=== PATIENT | male | born 1970 | race Hispanic/Latino ===

== ENCOUNTER 2018-07-11 18:31 | Observation (INO) | payer OTHER, SELFPAY ==
[2018-07-11 19:36] LABS: Urine Blood NEGATIVE (NEG); Urine Glucose NEGATIVE (NEG); Urine Protein 1+ (NEG); Urine Specific Gravity 1.025 (1.005-1.030); Urine pH 6.5 (5.0-7.0)
[2018-07-11] MEDS ORDERED: FAMOTIDINE 20 MG/2 ML VIAL IV ONE (19:54)
[2018-07-11] MEDS ORDERED: KETOROLAC 30 MG/ML INJ ONE (19:54)
[2018-07-11] MEDS ORDERED: ONDANSETRON 4 MG/2 ML VIAL ONE (19:54)
[2018-07-11] MEDS ORDERED: NA CHLORIDE 0.9% 1,000 ML ONE (19:54)
[2018-07-11 20:06] LABS: Absolute Lymphocytes (CBC) 1.6 K/uL (0.7-4.9); Absolute Neutrophil 9.2 K/uL (1.8-8.0); Basophils % 0.4 % (0-1.3); Eosinophils % 2.3 % (0-4.4); Hematocrit 43.6 % (39.6-49.0); Lymphocytes % 13.3 % (15.3-44.8); MCH 30.8 pg (27.0-35.0); MCV 91.1 fL (80-100); MPV 8.6 fL (7.6-11.3); Monocytes % 8.5 % (3.3-12.3); RBC Red Blood Cell Count 4.79 M/uL (4.33-5.43)
[2018-07-11 20:16] LABS: Albumin 4.1 g/dL (3.4-5.0); Bilirubin Direct 0.1 mg/dL (0-0.2); Bilirubin Total 0.5 mg/dL (0.2-1.0); Potassium 3.7 mmol/L (3.5-5.1); Protein, Total 8.2 g/dL (6.4-8.2)
[2018-07-11 20:17] LABS: Urine Amorphous Sediment 1+ /HPF (NONE SEEN); Urine Bacteria <20 /HPF (NONE SEEN); Urine Culture Reflex Order NOT NEEDED; Urine RBC <5 /HPF (NONE SEEN)
--- NOTE | 2018-07-11 20:55 | RAD REPORT ---
EXAM DESCRIPTION: CTAbdomen Pelvis W Contrast - 07/11/2018 8:45 pm CLINICAL HISTORY: Abdominal pain. ABD PAIN COMPARISON: No comparisons TECHNIQUE: Biphasic CT imaging of the abdomen and pelvis was performed with 100 ml non-ionic IV cont rast. All CT scans are performed using dose optimization technique as appropriate and may include automated exposure control or mA/KV adjustment according to patient size. FINDINGS: The lung bases are clear. Mild diffuse fatty liver is noted. The spleen, adrenal glands and kidneys are within normal limits. M ild inflammatory changes and edema suspected involving the pancreatic head and uncinate process. Ros ral adjacent lymph nodes are present. The finding suggests mild/early acute pancreatitis. No bowel obstruction, free air, free fluid or abscess. The appendix is not identified as a discrete structure, however, no secondary findings of appendicitis are identified. Postsurgical changes are p resent related to hernia repair. No suspicious bony findings. IMPRESSION: Mild/early acute pancreatitis is suspected. Correlation with amylase and lipase levels w ould be of value. Fatty liver.
--- NOTE | 2018-07-11 21:38 | EDPHYS ---
Physician Documentation [facility] Name: Jhon Alba Age: 47 yrs Sex: Male : 1970 Arrival Date: 07/11/2018 Time: 18:33 Bed 25 Private MD: Out, [facility] ED Physician Stephan Mcgrath HPI: 07/11 19:33 This 47 yrs old Male presents to ER via Ambulatory with complaints of wa Abdominal Pain. 19:33 The patient presents with abdominal pain that is diffuse. Onset: The symptoms/episode wa began/occurred 1 day(s) ago, began at 1 AM last night. constant. The symptoms do not radiate. Associated signs and symptoms: none. The symptoms are described as achy, steady. Modifying factors: The symptoms are alleviated by nothing, the symptoms are aggravated by nothing. Severity of pain: At its worst the pain was moderate in the emergency department the pain is unchanged. The patient has not experienced similar symptoms in the past. The patient has not recently seen a physician. states feels like ulcers. Had ulcers many years ago. Historical: - Allergies: 19:21 PENICILLINS; bb - Home Meds: 19:21 Unable to obtain [Active]; bb - PMHx: 19:21 Hypertension; gastric ulcers; bb - PSHx: 19:21 Hernia repair; shoulder surgery; bb - Immunization history:: Adult Immunizations up to date. - Social history:: Smoking status: Patient/guardian denies using tobacco, but has a distant history of tobacco abuse, Patient uses alcohol, on a daily basis. Patient/guardian denies using street drugs. - Ebola Screening: : No symptoms or risks identified at this time. - Family history:: not pertinent. - Hospitalizations: : No recent hospitalization is reported. ROS: 19:34 Constitutional: Negative for fever, chills, and weight loss, Eyes: Negative for injury, wa pain, redness, and discharge, ENT: Negative for injury, pain, and discharge, Neck: Negative for injury, pain, and swelling, Cardiovascular: Negative for chest pain, palpitations, and edema, Respiratory: Negative for shortness of breath, cough, wheezing, and pleuritic chest pain, Back: Negative for injury and pain, : Negative for injury, bleeding, discharge, and swelling, MS/Extremity: Negative for injury and deformity, Skin: Negative for injury, rash, and discoloration, Neuro: Negative for headache, weakness, numbness, tingling, and seizure, Psych: Negative for depression, anxiety, suicide ideation, homicidal ideation, and hallucinations. 19:34 Abdomen/GI: Positive for abdominal pain, Negative for nausea, vomiting, diarrhea. 19:35 All other systems are negative. wa Exam: 19:35 Constitutional: This is a well developed, well nourished patient who is awake, alert, wa and in no acute distress. Head/Face: Normocephalic, atraumatic. Eyes: Pupils equal round and reactive to light, extra-ocular motions intact. Lids and lashes normal. Conjunctiva and sclera are non-icteric and not injected. Cornea within normal limits. Periorbital areas with no swelling, redness, or edema. ENT: Nares patent. No nasal discharge, no septal abnormalities noted. Tympanic membranes are normal and external auditory canals are clear. Oropharynx with no redness, swelling, or masses, exudates, or evidence of obstruction, uvula midline. Mucous membranes moist. Neck: Trachea midline, no thyromegaly or masses palpated, and no cervical lymphadenopathy. Supple, full range of motion without nuchal rigidity, or vertebral point tenderness. No Meningismus. Chest/axilla: Normal chest wall appearance and motion. Nontender with no deformity. No lesions are appreciated. Cardiovascular: Regular rate and rhythm with a normal S1 and S2. No gallops, murmurs, or rubs. Normal PMI, no JVD. No pulse deficits. Respiratory: Lungs have equal breath sounds bilaterally, clear to auscultation and percussion. No rales, rhonchi or wheezes noted. No increased work of breathing, no retractions or nasal flaring. Back: No spinal tenderness. No costovertebral tenderness. Full range of motion. Skin: Warm, dry with normal turgor. Normal color with no rashes, no lesions, and no evidence of cellulitis. MS/ Extremity: Pulses equal, no cyanosis. Neurovascular intact. Full, normal range of motion. Neuro: Awake and alert, GCS 15, oriented to person, place, time, and situation. Cranial nerves II-XII grossly intact. Motor strength 5/5 in all extremities. Sensory grossly intact. Cerebellar exam normal. Normal gait. Psych: Awake, alert, with orientation to person, place and time. Behavior, mood, and affect are within normal limits. 19:35 Abdomen/GI: Inspection: abdomen appears normal, Bowel sounds: normal, in all quadrants, Palpation: soft, in all quadrants, moderate abdominal tenderness, in the epigastric area, umbilical area and right upper quadrant. Vital Signs: 19:21 BP 149 / 107; Pulse 112; Resp 16 S; Temp 98.6(O); Pulse Ox 96% on R/A; Weight 102.06 kg bb (R); Height 5 ft. 10 in. (177.80 cm) (R); Pain 8/10; 20:12 BP 159 / 104; Pulse 103; Resp 19; Pulse Ox 95% on R/A; kr2 20:15 BP 161 / 95 RA (auto/lg); Pulse 103; Resp 19; Pulse Ox 97% on R/A; jp3 21:00 BP 145 / 105; Pulse 99; Resp 12; Pulse Ox 97% on R/A; kr2 22:00 BP 142 / 98; Pulse 95; Resp 14; Pulse Ox 99% on R/A; kr2 23:00 BP 147 / 90; Pulse 92; Resp 14; Pulse Ox 98% on R/A; kr2 07/12 00:00 BP 152 / 90; Pulse 90; Resp 17; Pulse Ox 99% on R/A; kr2 07/11 19:21 Body Mass Index 32.28 (102.06 kg, 177.80 cm) MDM: 07/11 19:04 Patient medically screened. nh 19:36 Differential diagnosis: cholecystitis, Cholelithiasis, gastritis, gastroesophageal wa reflux disease, non-specific abd pain, pancreatitis, drinks ETOH daily. r/o gastritis. check gallbladder. reassess. 21:33 Data reviewed: vital signs, nurses notes, lab test result(s), EKG, radiologic studies. nh Test interpretation: by ED physician or midlevel provider: CT abd/pelvis: mild acute pancreatitis. fatty liver. labs noted for leukocytosis. Response to treatment: the patient's symptoms have markedly improved after treatment, pain resolved with ED interventions. will admit. GI consultation. advised to quit ETOH. Physician consultation: Lisa Bob MD. Admission orders: after a detailed discussion of the patient's condition and case, the admit orders are written by me. 07/11 19:19 Order name: Urine Dipstick--Ancillary (enter results); Complete Time: 20:29 [facility] 07/11 19:31 Order name: Basic Metabolic Panel; Complete Time: 20:29 nh 07/11 19:31 Order name: CBC with Diff; Complete Time: 20:29 nh 07/11 19:31 Order name: Hepatic Function; Complete Time: 20:29 nh 07/11 19:31 Order name: Lipase; Complete Time: 20: nh 07/11 19:31 Order name: Urine Microscopic Only; Complete Time: 20: nh 07/11 19:31 Order name: IV Saline Lock; Complete Time: 19:47 nh 07/11 19:31 Order name: Labs collected and sent; Complete Time: 19:47 nh 07/11 19:31 Order name: Urine Dipstick-Ancillary (obtain specimen); Complete Time: 19: nh 07/11 19:31 Order name: CT Abd/Pelvis - W/Contrast; Complete Time: 21:03 nh Administered Medications: 19:56 Drug: Zofran 4 mg Route: IVP; Site: right antecubital; kr2 20:15 Follow up: Response: No adverse reaction kr2 19:56 Drug: Pepcid 20 mg Route: IVP; Site: left antecubital; kr2 20:15 Follow up: Response: No adverse reaction; Pain is decreased kr2 19:56 Drug: TORadol 30 mg Route: IVP; Site: left antecubital; kr2 20:15 Follow up: Response: No adverse reaction; Pain is decreased kr2 19:57 Drug: NS 0.9% 1000 ml Route: IV; Rate: 1000 ml; Site: right antecubital; kr2 21:05 Follow up: Response: No adverse reaction; IV Status: Completed infusion kr2 Disposition: 07/11/18 21:38 Hospitalization ordered by Lisa Bob for Observation. Preliminary diagnosis are Acute Abdominal Pain, Acute Pancreatittis. - Bed requested for Telemetry/MedSurg (observation). - Status is Observation. kr2 - Condition is Stable. - Problem is new. - Symptoms have improved. UTI on Admission? No Signatures: Dispatcher [employer] EDRosa Maria Johnson RN RN bb Stephan Mcgrath MD MD wa Reaves, Karey, RN RN kr2 Corrections: (The following items were deleted from the chart) 22:02 21:38 Hospitalization Ordered by Lisa Bob MD for Observation. Preliminary bb diagnosis is Acute Abdominal Pain; Acute Pancreatittis. Bed requested for Telemetry/MedSurg (observation). Status is Observation. Condition is Stable. Problem is new. Symptoms have improved. UTI on Admission? No. nh 07/12 00:47 07/11 22:02 07/11/2018 21:38 Hospitalization Ordered by Lisa Bob MD for kr2 Observation. Preliminary diagnosis is Acute Abdominal Pain; Acute Pancreatittis. Bed requested for Telemetry/MedSurg (observation). Status is Observation. Condition is Stable. Problem is new. Symptoms have improved. UTI on Admission? No. bb
--- NOTE | 2018-07-11 21:38 | ER ---
Nurse's Notes [facility] Name: Jhon Alba Age: 47 yrs Sex: Male : 1970 Arrival Date: 07/11/2018 Time: 18:33 Bed 25 Private MD: Out, [facility] Diagnosis: Acute Abdominal Pain;Acute Pancreatittis Presentation: 07/11 19:19 Presenting complaint: Patient states: he has been having abdominal pain since approx bb 0100 this morning denies nausea, vomiting, diarrhea, pain is constant but intermittent in intensity. Transition of care: patient was not received from another setting of care. Onset of symptoms was July 11, 2018. Risk Assessment: Do you want to hurt yourself or someone else? Patient reports no desire to harm self or others. Initial Sepsis Screen: Does the patient meet any 2 criteria? No. Patient's initial sepsis screen is negative. Does the patient have a suspected source of infection? No. Patient's initial sepsis screen is negative. Care prior to arrival: None. 19:19 Method Of Arrival: Ambulatory bb 19:19 Acuity: CRAIG 3 bb Historical: - Allergies: 19:21 PENICILLINS; bb - Home Meds: 19:21 Unable to obtain [Active]; bb - PMHx: 19:21 Hypertension; gastric ulcers; bb - PSHx: 19:21 Hernia repair; shoulder surgery; bb - Immunization history:: Adult Immunizations up to date. - Social history:: Smoking status: Patient/guardian denies using tobacco, but has a distant history of tobacco abuse, Patient uses alcohol, on a daily basis. Patient/guardian denies using street drugs. - Ebola Screening: : No symptoms or risks identified at this time. - Family history:: not pertinent. - Hospitalizations: : No recent hospitalization is reported. Screenin:00 Abuse screen: Denies threats or abuse. Denies injuries from another. Nutritional kr2 screening: No deficits noted. Tuberculosis screening: No symptoms or risk factors identified. Fall Risk None identified. Assessment: 19:57 General: Appears in no apparent distress. uncomfortable, well groomed, well developed, kr2 well nourished, Behavior is calm, cooperative, appropriate for age. Pain: Complains of pain in epigastric area Pain radiates to right upper quadrant and left upper quadrant Pain currently is 7 out of 10 on a pain scale. Quality of pain is described as squeezing, gnawing, Pain began at 0100 this morning Is continuous, Alleviated by rest. Neuro: Level of Consciousness is awake, alert, obeys commands, Oriented to person, place, time, situation, Appropriate for age. Cardiovascular: Capillary refill < 3 seconds in bilateral fingers Patient's skin is warm and dry. Respiratory: Airway is patent Respiratory effort is even, unlabored, Respiratory pattern is regular, symmetrical. GI: Abdomen is flat, non-distended, Bowel sounds present X 4 quads. Abd is soft X 4 quads Abdomen is tender to palpation in epigastric area Patient currently denies diarrhea, nausea, vomiting. EENT: Oral mucosa is moist. Derm: Skin is intact, is healthy with good turgor, Skin is pink, warm \T\ dry. Musculoskeletal: Circulation, motion, and sensation intact. 21:00 Reassessment: Patient appears in no apparent distress at this time. Patient and/or kr2 family updated on plan of care and expected duration. Pain level reassessed. Patient is alert, oriented x 3, equal unlabored respirations, skin warm/dry/pink. Patient states feeling better. Patient states symptoms have improved. 22:00 Reassessment: Patient appears in no apparent distress at this time. Patient and/or kr2 family updated on plan of care and expected duration. Pain level reassessed. Patient is alert, oriented x 3, equal unlabored respirations, skin warm/dry/pink. Patient denies pain at this time. 23:00 Reassessment: Patient appears in no apparent distress at this time. Patient and/or kr2 family updated on plan of care and expected duration. Pain level reassessed. Patient is alert, oriented x 3, equal unlabored respirations, skin warm/dry/pink. Patient states feeling better. 07/12 00:00 Reassessment: Patient appears in no apparent distress at this time. Patient and/or kr2 family updated on plan of care and expected duration. Pain level reassessed. Patient is alert, oriented x 3, equal unlabored respirations, skin warm/dry/pink. Patient denies pain at this time. 00:47 Reassessment: When transferring patient to room 230 patient stated he was starting to kr2 feel pain again. Receiving nurseVioleta at bedside and notified. Patient in no distress. Vital Signs: 07/11 19:21 BP 149 / 107; Pulse 112; Resp 16 S; Temp 98.6(O); Pulse Ox 96% on R/A; Weight 102.06 kg bb (R); Height 5 ft. 10 in. (177.80 cm) (R); Pain 8/10; 20:12 BP 159 / 104; Pulse 103; Resp 19; Pulse Ox 95% on R/A; kr2 20:15 BP 161 / 95 RA (auto/lg); Pulse 103; Resp 19; Pulse Ox 97% on R/A; jp3 21:00 BP 145 / 105; Pulse 99; Resp 12; Pulse Ox 97% on R/A; kr2 22:00 BP 142 / 98; Pulse 95; Resp 14; Pulse Ox 99% on R/A; kr2 23:00 BP 147 / 90; Pulse 92; Resp 14; Pulse Ox 98% on R/A; kr2 07/12 00:00 BP 152 / 90; Pulse 90; Resp 17; Pulse Ox 99% on R/A; kr2 07/11 19:21 Body Mass Index 32.28 (102.06 kg, 177.80 cm) ED Course: 07/11 18:33 Patient arrived in ED. sb2 18:34 Out, [facility] is Private Physician. sb2 19:04 Stephan Mcgrath MD is Attending Physician. wa 19:19 Urine collected: clean catch specimen, clear, antonio colored, Amount Voided: 70mL. jp3 19:19 Placed in gown. Bed in low position. Call light in reach. Side rails up X 1. Warm 3 blanket given. Pulse ox on. NIBP on. 19:20 Urine Dipstick--Ancillary (enter results) Sent. jp3 19:21 Triage completed. bb 19:21 Arm band placed on Patient placed in an exam room, on a stretcher, on pulse oximetry. bb 19:31 Urine Dipstick--Ancillary (enter results) Sent. jp3 19:34 Radiology exam delayed due to lab results not completed at this time. (BUN/Creatinine). 2 19:40 Initial lab(s) drawn, by nj, sent to lab. Inserted saline lock: 20 gauge in left 3 antecubital area, using aseptic technique. Blood collected. 19:46 Chloe Rolle, RN is Primary Nurse. kr2 19:48 Basic Metabolic Panel Sent. jp3 19:48 CBC with Diff Sent. jp3 19:48 Hepatic Function Sent. jp3 19:48 Lipase Sent. jp3 19:48 Urine Microscopic Only Sent. jp3 19:56 Radiology exam delayed due to lab results not completed at this time. (BUN/Creatinine). 20:03 color television console monitor on. kr2 20:[address] via wheelchair. nj 20:44 CT completed. Patient tolerated procedure well. Patient moved back from CT. nj 20:44 CT Abd/Pelvis - W/Contrast In Process Unspecified. EDMS 20:55 Warm blanket given. jp3 20:56 Door closed. jp3 21:37 Lisa Bob MD is Hospitalizing Provider. ga 07/12 00:39 No provider procedures requiring assistance completed. Patient admitted, IV remains in kr2 place. Administered Medications: 07/11 19:56 Drug: Zofran 4 mg Route: IVP; Site: right antecubital; kr2 20:15 Follow up: Response: No adverse reaction kr2 19:56 Drug: Pepcid 20 mg Route: IVP; Site: left antecubital; kr2 20:15 Follow up: Response: No adverse reaction; Pain is decreased kr2 19:56 Drug: TORadol 30 mg Route: IVP; Site: left antecubital; kr2 20:15 Follow up: Response: No adverse reaction; Pain is decreased kr2 19:57 Drug: NS 0.9% 1000 ml Route: IV; Rate: 1000 ml; Site: right antecubital; kr2 21:05 Follow up: Response: No adverse reaction; IV Status: Completed infusion kr2 Outcome: 21:38 Decision to Hospitalize by Provider. ga 07/12 00:40 Admitted to Med/surg accompanied by nurse, via wheelchair, room 230, with chart, Report kr2 called to Violeta Christianson RN Condition: stable Instructed on the need for admit, Demonstrated understanding of instructions. 00:47 Patient left the ED. kr2 Signatures: Dispatcher [employer] EDMS Elizabeth Hernandez Brenda, RN RN Guzman Trent Victoria 2 Stephan Mcgrath MD MD wa Reaves, Karey, TORRI RN kr2 Meghana Bright2 Jerald Ball jp3
[2018-07-11] MEDS ORDERED: ACETAMINOPHEN 500 MG TAB PO PRN (23:00)
[2018-07-11] MEDS ORDERED: ONDANSETRON 4 MG/2 ML VIAL IV PRN (23:00)
[2018-07-11] MEDS ORDERED: ALPRAZOLAM 0.25 MG TABLET PO PRN (23:00)
[2018-07-12] MEDS: NA CHLORIDE 0.9% 1,000 ML IV SCH ×3 (00:52→13:21)
[2018-07-12] MEDS: MORPHINE 4 MG/ML SYR IV PRN ×2 (00:54→09:27)
[2018-07-12 05:46] LABS: ALT/SGPT 26 U/L (12-78); AST/SGOT 13 U/L (15-37); Albumin 3.3 g/dL (3.4-5.0); Alkaline Phosphatase 49 U/L (45-117); BUN Blood Urea Nitrogen 14 mg/dL (7-18); Bicarbonate 30 mmol/L (21-32); Bilirubin Total 0.6 mg/dL (0.2-1.0); Glucose Level 91 mg/dL (74-106); Lipase 282 U/L (73-393); Phosphorus 4.5 mg/dL (2.5-4.9); Potassium 4.1 mmol/L (3.5-5.1); Protein, Total 6.7 g/dL (6.4-8.2); Sodium Level 139 mmol/L (136-145)
[2018-07-12 05:47] LABS: Absolute Lymphocytes (CBC) 1.9 K/uL (0.7-4.9); Basophils % 0.7 % (0-1.3); Eosinophils % 4.5 % (0-4.4); Hematocrit 38.8 % (39.6-49.0); Lymphocytes % 23.1 % (15.3-44.8); MCH 31.6 pg (27.0-35.0); MCV 91.1 fL (80-100); MPV 8.6 fL (7.6-11.3); Monocytes % 12.5 % (3.3-12.3); RBC Red Blood Cell Count 4.25 M/uL (4.33-5.43)
--- NOTE | 2018-07-12 08:39 | P.HP ---
Certification for Inpatient Patient admitted to: Observation With expected LOS: <2 Midnights Patient will require the following post-hospital care: None Practitioner: I am a practitioner with admitting privileges, knowledge of patient current condition, hospital course, and medical plan of care. Services: Services provided to patient in accordance with Admission requirements found in Title 42 Section 412.3 of the Code of Federal Regulations Patient History Date of Service: 07/11/18 Reason for admission: Acute pancreatitis History of Present Illness: Patient is a 47-year-old gentleman who came to the hospital with abdominal discomfort. Pain was mainly in the epigastric region. Patient is a heavy drinker and drinks 4-6 beers a day. Patient's pain radiated to his back. He came to the hospital for evaluation. In the ER his CT scan revealed acute pancreatitis. Patient was admitted to the hospital for further evaluation. Allergies Penicillins Allergy (Verified 07/11/18 22:38) Hives Home Medications: NK [No Home Meds] 07/12/18 - Past Medical/Surgical History Has patient received pneumonia vaccine in the past: No Diabetic: No -: HTN -: Gastric Ulcer -: Hernia repair -: Shoulder sx - Family History Father Medical History: Hypertension Mother History Unknown: Yes - Social History Smoking Status: Former smoker Alcohol use: Yes CD- Drugs: No Caffeine use: Yes Place of Residence: Home Review of Systems 10-point ROS is otherwise unremarkable Physical Examination - Vital Signs Temperature: 96.8 F Blood Pressure: 141/94 Pulse: 98 Respirations: 18 Pulse Ox (%): 97 - Physical Exam General: Alert, In no apparent distress, Oriented x3 HEENT: Atraumatic, PERRLA, Mucous membr. moist/pink, EOMI, Sclerae nonicteric Neck: Supple, 2+ carotid pulse no bruit, No LAD, Without JVD or thyroid abnormality Respiratory: Clear to auscultation bilaterally, Normal air movement Cardiovascular: Regular rate/rhythm, Normal S1 S2, No murmurs Gastrointestinal: Normal bowel sounds, Soft and benign, Non-distended, No rebound, No guarding, Tenderness Musculoskeletal: No clubbing, No swelling, No tenderness Integumentary: No rashes Neurological: Normal gait, Normal speech, Normal strength at 5/5 x4 extr, Normal tone, Normal affect Lymphatics: No axilla or inguinal lymphadenopathy - Studies Laboratory Data (last 24 hrs) 07/11/18 19:40: WBC 12.1 H, Hgb 14.8, Hct 43.6, Plt Count 249 07/11/18 19:40: Sodium 136, Potassium 3.7, BUN 12, Creatinine 1.00, Glucose 98, Total Bilirubin 0.5, AST 15, ALT 34, Alkaline Phosphatase 57, Lipase 271 Assessment & Plan - Problems (Diagnosis) (1) Acute pancreatitis Current Visit: Yes Status: Acute - Plan 1. Continue with IV hydration 2. [employer] Welder Apprentice regarding alcohol cessation 3. Continue with pain control 4. NPO 5. GI consultation if symptoms do not improve 6. We will monitor CBC, CMP, LFTs and lipase along with electrolytes. May need to check lipid profile 7. GI and DVT prophylaxis Discharge Plan: Home Plan to discharge in: 48 Hours - Advance Directives Does patient have a Living Will: No Does patient have a Durable POA for Healthcare: No - Code Status/Comfort Care Code Status Assessed: Yes Code Status: Full Code Critical Care: No Time Spent Managing PTS Care (In Minutes): 50
[2018-07-12] MEDS ORDERED: ENOXAPARIN 40 MG/0.4 ML SQ SCH (09:00)
[2018-07-12] MEDS ORDERED: TRAMADOL HCL 50 MG TAB PO PRN (11:04)
--- NOTE | 2018-07-12 16:32 | P.SSS ---
Patient History Date of Service: 07/12/18 Reason for admission: Acute pancreatitis History of Present Illness: Patient is a 47-year-old gentleman who came to the hospital with abdominal discomfort. Pain was mainly in the epigastric region. Patient is a heavy drinker and drinks 4-6 beers a day. Patient's pain radiated to his back. He came to the hospital for evaluation. In the ER his CT scan revealed acute pancreatitis. Patient was admitted to the hospital for further evaluation. Allergies Penicillins Allergy (Verified 07/11/18 22:38) Hives Home Medications: NK [No Home Meds] 07/12/18 - Past Medical/Surgical History Has patient received pneumonia vaccine in the past: No Diabetic: No -: HTN -: Gastric Ulcer -: Hernia repair -: Shoulder sx - Family History Father -: Hypertension Mother History Unknown: Yes - Social History Smoking Status: Former smoker Alcohol use: Yes CD- Drugs: No Caffeine use: Yes Place of Residence: Home Review of Systems 10-point ROS is otherwise unremarkable Physical Examination - Vital Signs Temperature: 98.1 F Blood Pressure: 168/89 Pulse: 113 Respirations: 16 Pulse Ox (%): 94 - Physical Exam General: Alert, In no apparent distress HEENT: Atraumatic, PERRLA, Mucous membr. moist/pink, EOMI, Sclerae nonicteric Neck: Supple, 2+ carotid pulse no bruit, No LAD, Without JVD or thyroid abnormality Respiratory: Clear to auscultation bilaterally, Normal air movement Cardiovascular: Regular rate/rhythm, Normal S1 S2 Gastrointestinal: Normal bowel sounds, No tenderness Musculoskeletal: No tenderness Integumentary: No rashes Neurological: Normal gait, Normal speech, Normal strength at 5/5 x4 extr, Normal tone, Normal affect Lymphatics: No axilla or inguinal lymphadenopathy - Studies Laboratory Data (last 24 hrs) 07/11/18 19:40: WBC 12.1 H, Hgb 14.8, Hct 43.6, Plt Count 249 07/11/18 19:40: Sodium 136, Potassium 3.7, BUN 12, Creatinine 1.00, Glucose 98, Total Bilirubin 0.5, AST 15, ALT 34, Alkaline Phosphatase 57, Lipase 271 - Diagnosis (Problem(s)) (1) Alcohol abuse Status: Chronic (2) Acute pancreatitis Onset Date: 08/31/18 Status: Resolved Qualifiers: Pancreatitis type: alcohol induced Treatment Summary: Overall patient remained stable while here in the hospital Patient was initially admitted to the hospital for acute pancreatitis on CT scan. Patient had marked resolution in his symptoms after having NPO for 24 hr and IV fluids. Patient was advanced to a clear liquid diet which she tolerated well. Patient's lipase remained normal while here in the hospital. Patient was educated extensively on abstinence from alcohol. Patient demonstrated understanding and was able to tolerate his diet well and thus was discharged home under stable condition. Patient was asked to follow up with his primary care provider in about 1-2 weeks post discharge. - Disposition Disposition: ROUTINE DISCHARGE Condition: GOOD Patient Discharge Instructions: Please f.u with PCP in 1 week post discharge. No New medication. Please do not use Alcohol anymore as it may cause worsening of pancreatitis Diet: Regular Activity: Ad callie
== END 2018-07-12 15:03 | disposition home or self-care (01) ==
LOC: ER 18:31 → ERHOLD 21:51 → 2ND 23:28
PROVIDERS: ADMIT Hospitalist; ATTEND Hospitalist
DX: K85.90 Acute pancreatitis without necrosis or infection, unspecified (principal); I10 Essential (primary) hypertension; F10.10 Alcohol abuse, uncomplicated; Z88.0 Allergy status to penicillin; Z87.891 Personal history of nicotine dependence
CPT/HCPCS: 36415; 74177; 80048; 80053; 80061; 80076; 81003; 81015; 83690; 83735; 84100; 85025; 99285; G0378; J1650; J2405; J7030; Q9967